=== PATIENT | female | born 1970 | race Caucasian/White ===

== ENCOUNTER 2024-04-30 08:07 | Emergency (ER) | payer MEDICAID ==
[~2024-04-30] VITALS: Ht 172.7 cm; Wt 69.5 kg
[2024-04-30 08:11] VITALS: TEMP 97.8
[2024-04-30 09:23] VITALS: BP 127/86; PULSE 84; RESP 16; O2SAT 98
== END 2024-04-30 09:24 | disposition home or self-care (01) ==
LOC: ER 08:08
DX: M25.562 Pain in left knee (principal); Z88.8 Allergy status to other drugs, medicaments and biological substances
CPT/HCPCS: 29505; 73562; 99284

== ENCOUNTER 2024-06-05 07:41 | Emergency (ER) | payer MEDICAID ==
[~2024-06-05] VITALS: Ht 172.7 cm; Wt 68.2 kg
[2024-06-05] MEDS ORDERED: AMOX-580 PO (08:32)
[2024-06-05] MEDS ORDERED: HYDR-3965 PO ×2 (08:33→08:36)
[2024-06-05 08:40] VITALS: BP 124/77; PULSE 91; RESP 16; TEMP 98.1; O2SAT 97
== END 2024-06-05 08:44 | disposition home or self-care (01) ==
LOC: ER 07:41
DX: K04.7 Periapical abscess without sinus (principal); K08.89 Other specified disorders of teeth and supporting structures; Z88.8 Allergy status to other drugs, medicaments and biological substances
CPT/HCPCS: 99283

== ENCOUNTER 2024-06-15 22:11 | Emergency (ER) | payer MEDICAID ==
[~2024-06-15] VITALS: Ht 172.7 cm; Wt 78.3 kg
[~2024-06-15 22:11] MED LIST: AMOX-580 PO
[2024-06-15 22:22] VITALS: BP 117/73; PULSE 98; RESP 18; TEMP 98.2; O2SAT 98
== END 2024-06-16 01:40 | disposition left against medical advice (07) ==
LOC: ER 22:13
DX: F41.9 Anxiety disorder, unspecified (principal); Z53.21 Procedure and treatment not carried out due to patient leaving prior to being seen by health care provider

== ENCOUNTER 2024-12-05 17:42 | Emergency (ER) | payer MEDICAID ==
[~2024-12-05] VITALS: Ht 172.7 cm; Wt 68.2 kg
[2024-12-05 18:22] VITALS: BP 133/80; PULSE 78; RESP 19; TEMP 98.4; O2SAT 98
== END 2024-12-05 18:39 | disposition home or self-care (01) ==
LOC: ER 17:42
DX: S60.455A Superficial foreign body of left ring finger, initial encounter (principal); Z88.8 Allergy status to other drugs, medicaments and biological substances; W49.04XA Ring or other jewelry causing external constriction, initial encounter; Y93.89 Activity, other specified; Y92.89 Other specified places as the place of occurrence of the external cause; Y99.8 Other external cause status
CPT/HCPCS: 99282; 99284

== ENCOUNTER 2025-01-18 14:25 | Emergency (ER) | payer MEDICAID ==
[~2025-01-18] VITALS: Ht 170.2 cm; Wt 81.7 kg
[2025-01-18 14:39] VITALS: BP 129/77; PULSE 77; RESP 18; O2SAT 98
--- NOTE | 2025-01-18 15:07 | Physician Documentation ---
History of Present Illness Chief Complaint: Abdominal Pain Stated Complaint: ABD PAIN OK to notify your PCP?: Yes HPI Tanya is a 54-year-old female presenting to emergency department today with worsening left upper quadrant pain for 3 days. The pain comes in waves and is worse after eating and with an empty stomach. She reports having nausea, vomiting 3xdaily , and 1 episode of diarrhea. She history of gallbladder removal. No history of pancreatitis. Sober from alcohol for the past 5 months and are undergoing treatment. She also has a history of hepatitis-C with an liver ultrasound scheduled on Jan 27 2025 and has plans to treat her hep C after the ultrasound. Medication Reconciliation Allergies: Coded Allergies: bupropion (Verified Allergy, Severe, throat swelling, 12/05/24) buspirone (Verified Allergy, Severe, throat swelling, 12/05/24) Physical Exam Vital Signs: Temperature: 97.7, Source: Oral, Heart Rate: 77, Respiratory Rate: 18, BP: 129/77, Pulse Oximetry: 98, Weight: 81.700 Physical Exam General: conscious, coherent, non-toxic appearing, follows commands appropriately and in no apparent distress. Skin: Warm and dry without rash. Neck: Supple. Trachea midline. No JVD. Chest: Good expansion without retractions or grunting. Equal chest rise and fall. Lungs clear to auscultation bilaterally. Heart: No cyanosis. S1 and S2 normal. No murmurs, gallops, rubs, or clicks. Abdomen: Left upper quadrant tenderness, active bowel sounds. No rebound tenderness, guarding, distention. Extremities: Full range of motion. Good strength, bilaterally. No cyanosis, clubbing or edema. Neurologic: A&Ox4. Moves all extremities. Speech is clear. Gait normal. Progress Results/Orders Results/Orders Vital Signs 01/18/25 14:39 Temp 97.7 Pulse 77 Resp 18 B/P (MAP) 129/77 Pulse Ox 98 Medical Decision Making Findings Tanya is a 54-year-old female presenting with left upper quadrant pain with episodes of nausea, vomiting 3 times a day, and 1 episode of diarrhea in the past week. She reports his pain is worse after meals and worse with an empty stomach. Her AST and ALT are both elevated, but this makes sense given her hepatitis-C and prior alcohol abuse. She has an upcoming hepatic ultrasound in 9 days. I consulted with Dr. Hall on this case regarding the elevated AST and ALT values. Her lipase was normal to rule out pancreatitis. Her UA was negative for infection. We used shared decision making with the patient who agrees to follow up with her hepatitis-C treatment and upcoming ultrasound. She was made aware of her elevated liver enzymes. To help with the vomiting, I will prescribe Zofran to use as needed up to 3 times a day. To help with her stomach pains, I will prescribe omeprazole. She follow up with her primary care provider in the next 3 days and return back here for any new or concerning symptoms. Departure Disposition: HOME / SELF CARE / HOMELESS Impression: Primary Impression: Abdominal pain Additional Impression: Acute gastritis Condition: Stable Discharge Instructions: Abdominal Pain (Nonspecific), Gastritis, Adult Additional Instructions: Please continue with your ultrasound on the and treatment plan. Follow up with her primary care provider in the next 3 days. Return back here for new or worsening symptoms. You are being prescribed Zofran for your nausea and vomiting and omeprazole to reduce acid in the stomach. As always, please take medications as directed. If you have any questions at all regarding your medications please contact the pharmacist, emergency department or your regular doctor. Thank you for choosing the [facility] Emergency Department today. We hope you feel better soon! Referrals: NO PRIMARY CARE PROVIDER (PCP) Education Educated: Patient Educated regarding: diagnosis, treatment, prognosis, need for follow up Signature Scribe Signature: . Attestation: Dayanna Green NP . 01/18/25 16:40 DAYANNA LUGO January 18, 2025 15:07
[2025-01-18 15:15] LABS: BILIRUBIN,URINE NEGATIVE (Neg); CLARITY,URINE CLEAR (Clear); COLOR,URINE YELLOW (Yellow); GLUCOSE, URINE NEGATIVE (Neg); KETONES,URINE NEGATIVE (Neg); LEUKOCYTE ESTERASE ,URINE NEGATIVE (Neg); NITRITES, URINE NEGATIVE (Neg); OCCULT BLOOD,URINE NEGATIVE (Neg); PROTEIN,URINE NEGATIVE (Neg); UROBILINOGEN,URINE 0.2 E.U/dL (0.2-1.0)
[2025-01-18 15:16] LABS: BASOPHILS # (AUTO) 0.1 X10'3 (0-0.2); BASOPHILS % (AUTO) 1.1 % (0-1); EOSINOPHILS # (AUTO) 0.2 X10'3 (0-0.9); EOSINOPHILS % (AUTO) 2.7 % (0-6); HEMATOCRIT 38.6 % (35.0-45.0); HEMOGLOBIN 13.2 g/dl (12.0-16.0); LYMPHOCYTES # (AUTO) 2.3 X10'3 (1.1-4.8); LYMPHOCYTES % (AUTO) 35.9 % (21-51); MEAN CORPUSCULAR HGB CONC 34.2 g/dL (33.0-36.5); MEAN CORPUSCULAR VOLUME 87.6 FL (78-98); MEAN PLATELET VOLUME 7.9 FL (7.4-10.4); MONOCYTES # (AUTO) 0.6 X10'3 (0-0.9); MONOCYTES % (AUTO) 9.9 % (2-12); NEUTROPHILS # (AUTO) 3.3 X10'3 (1.8-7.7); NEUTROPHILS % (AUTO) 50.4 % (42-75); PLATELET COUNT 203 X10'3 (140-440); RED BLOOD COUNT 4.41 X10'6 (4.20-5.60); RED CELL DISTRIBUTION WIDTH 13.3 % (11.5-14.5); WHITE BLOOD COUNT 6.5 X10'3 (4.5-11.0)
[2025-01-18 15:17] LABS: UA COLLECTION TYPE CLN CATCH MIDSTREAM
[2025-01-18 15:24] LABS: URINE HCG NEGATIVE (NEG)
[2025-01-18 15:47] LABS: ALANINE AMINOTRANSFERASE 289 U/L (12-78); ALBUMIN 3.5 G/DL (3.4-5.0); ALBUMIN/GLOBULIN RATIO 0.9 (1.1-1.5); ALKALINE PHOSPHATASE 82 IU/L (46-116); AMYLASE 52 U/L (25-115); ANION GAP 9 (8-16); ASPARTATE AMINO TRANSFERASE 151 U/L (10-37); BILIRUBIN,TOTAL 0.2 MG/DL (0.1-1.0); BLOOD UREA NITROGEN 24 MG/DL (7-18); BUN/CREATININE RATIO 25.8 (10.0-20.0); CALCIUM 8.5 MG/DL (8.5-10.1); CHLORIDE 107 MMOL/L (99-107); CREATININE 0.93 MG/DL (0.40-0.90); GLUCOSE 80 MG/DL (70-104); LIPASE 47 U/L (16-77); SODIUM 141 MMOL/L (135-145); TOTAL CARBON DIOXIDE 24.6 MMOL/L (24-32); TOTAL PROTEIN 7.4 G/DL (6.4-8.2); eCRCL 66 ML/MIN; eGFR 62 ML/MIN
[2025-01-18] MEDS ORDERED: ONDA-243 PO (16:38)
[2025-01-18] MEDS ORDERED: OMEP20CA15 PO (16:39)
[2025-01-18 16:45] VITALS: TEMP 97.7
== END 2025-01-18 16:47 | disposition home or self-care (01) ==
LOC: ER 14:26
DX: K29.00 Acute gastritis without bleeding (principal); Z88.8 Allergy status to other drugs, medicaments and biological substances; Z90.49 Acquired absence of other specified parts of digestive tract
CPT/HCPCS: 36415; 80053; 81003; 81025; 82150; 83690; 85025; 99283

== ENCOUNTER 2025-01-27 10:46 | Emergency (ER) | payer MEDICAID ==
[~2025-01-27] VITALS: Ht 172.7 cm; Wt 81.6 kg
[~2025-01-27 10:46] MED LIST changes: -AMOX-580 PO; +OMEP20CA15 PO; +ONDA-243 PO
[2025-01-27 10:51] VITALS: BP 136/89; PULSE 81; RESP 18; TEMP 98; O2SAT 97
--- NOTE | 2025-01-27 11:14 | Physician Documentation ---
History of Present Illness ~ Chief Complaint: Mental Health Eval Stated Complaint: MANIC STATE X2 WEEKS Time Seen by MD: 11:07 HPI This is a 54-year-old female with a known history of bipolar, currently off her meds except for Seroquel, normally sees range urea, comes in for evaluation of two weeks of decreased level of sleep, increased melva. She is requesting medications for melva. The particular palliating or aggravating factors. Similar to prior manic episodes. Denies any somatic complaints. Denies any concern for tobacco, alcohol or illicit substances use. Medication Reconciliation Allergies: Coded Allergies: bupropion (Verified Allergy, Severe, throat swelling, 01/27/25) buspirone (Verified Allergy, Severe, throat swelling, 12/05/24) Scheduled Omeprazole (Omeprazole), 1 CAP PO DAILY Scheduled PRN ONDANSETRON ODT 4mg tablet (Ondansetron Odt), 1 TAB PO Q6H PRN PRN for nausea/vomiting Review of Systems ROS 10 point review of systems was performed and unless noted above in HPI is negative for acute process/complaint. Physical Exam Vital Signs: Temperature: 98.0, Source: Temporal, Heart Rate: 81, Respiratory Rate: 18, BP: 136/89, Pulse Oximetry: 97, Weight: 81.590 Physical Exam Physical examination: GENERAL: Awake, alert, oriented, GCS 15, no apparent distress, non-toxic appearing, answers questions, follows commands appropriately. HEENT: Atraumatic, normocephalic, pupils equal, extraocular muscles intact Active gross movements, sclerae anicteric, mucus membranes moist, no stridor. NECK: Midline, no JVD CARDIOVASCULAR: Good skin perfusion without evidence of pallor, mottling. PULMONARY: Nonlabored, symmetric chest rise, no audible wheezing, no accessory muscle use, no respiratory distress, speaking in full sentences. GASTROINTESTINAL: Not distended. NEUROLOGIC: Lucid with normal mental status. Normal facial symmetry. Moves all extremities symmetrically and with purpose. No truncal ataxia. Speech is fluid without evidence of dysarthria or aphasia, no focal deficits appreciated. EXTREMITIES: Acute deformities Skin: warm, dry PSYCHIATRIC: Pressured speech and anxious affect, normal insight, normal concentration. Focused exam: [] Progress Results/Orders Results/Orders Orders - LEONIDES PONCE DO Olanzapine Disint. Tablet (Zyprexa Zydis (01/27/25 11:10) Vital Signs 01/27/25 10:51 Temp 98.0 Pulse 81 Resp 18 B/P (MAP) 136/89 Pulse Ox 97 Medical Decision Making Findings Facility Status: ED Holds, RME process The plan was discussed with the patient, who demonstrates clear understanding of the plan and is in agreement with the plan unless otherwise noted in the chart. All questions have been answered, all concerns were addressed unless otherwise documented. I was available throughout their ED stay for frequent reassessment and questions. Differential Diagnoses (considered and possible or likely): [Acute psychosis, melva, decompensation of psychiatric disease, medication noncompliance,] ??Differential Diagnoses (considered and unlikely, not requiring evaluation currently): [Unlikely to represent any acute somatic process as the patient has no somatic complaints.] MDM Data Please see [facility] for the following: Independent Historians and external Records Review. Historian: [Patient] Independent Historians: ?[Record review] Medication Management: [Reviewed medication list] Social History and determinants: [Reviewed] Please see the body of the note for the following: Any independent interpretations of ECG, imaging studies. All vitals signs/haemodynamics, ordered tests were independently reviewed and interpreted by myself. Nursing triage complaint and vitals reviewed, additional nursing notes were reviewed as available and I agree unless otherwise noted or documented in contradiction in the chart Vital Signs: Independently reviewed Labs: Independently interpreted Imaging: Independently interpreted Old Medical Records: Independently reviewed, see HPI for relevant summary and information Pulse Oximetry: [97%] interpreted as [normal on room air] by me Additionally notably showing: [Hemodynamically stable] Tests considered but not ordered include: [Hematologic workup and imaging has been considered but does not appear to be necessary given clinical nature of diagnosis] Social Determinants of Health Impact: Patient was evaluated in [facility] [place] access to [facility] due to below par ratio of patient to medical providers. [] Comorbid Conditions Impacting Present Evaluation and Care/Treatment: [Bipolar] Management Discussions with other Healthcare Providers: [Non] Treatment and Disposition Medication Management (Given or considered): Zyprexa Zydis. See EMR for details Consideration for Hospitalization/Escalation/Deescalation of Care: Admission for observation has been considered, [however the patient is able to tolerate p.o., their symptoms are controlled, they are able to rely on oral medications, and their chief complaint/diagnosis can be managed on outpatient basis.] ?ED Course:?[No clinical decompensation, no somatic complaints, not suicidal and not homicidal.] ?Shared decision making:?[Patient is hemodynamically stable for discharge home with follow with their primary care provider. [ ] Specific and cautious return precautions provided and discussed with full understanding. Any incidental findings were also discussed and follow up recommendations given. [] All questions answered. Patient/family were able to verbalize back return precautions. Patient/family agree to plan. Copies of imaging and laboratory studies were provided.] Code status:?FULL Please see the full Electronic Medical Record for full details of nursing documentation, medications list, other records of complete past medical history and conditions, vital signs, laboratory studies, and any radiologic study interpretations by radiologists. Portions of this note were completed using [employer] dictation software and as a result there may exist minor errors in spelling. I have reviewed elements of past family and social history and agree as included in note. Departure Disposition: 01 HOME / SELF CARE / HOMELESS Impression: Primary Impression: Melva Condition: Improved Discharge Instructions: Managing Bipolar Disorder Referrals: NO PRIMARY CARE PROVIDER (PCP) Education Educated: Patient Educated regarding: diagnosis, treatment, prognosis, need for follow up Signature Scribe Signature: No scribe Attestation: This note accurately reflects clinical decisions, work performed by myself, DO KRIS Kilpatrick NICHOLAS M DO January 27, 2025 11:14
[2025-01-27] MEDS: OLANZapine 5mg rapidly disint. tablet PO ONE (11:35)
== END 2025-01-27 11:41 | disposition home or self-care (01) ==
LOC: ER 10:46
DX: F30.9 Manic episode, unspecified (principal); Z88.8 Allergy status to other drugs, medicaments and biological substances; Z79.899 Other long term (current) drug therapy
CPT/HCPCS: 99283

== ENCOUNTER 2025-01-29 04:13 | Emergency (ER) | payer MEDICAID ==
[~2025-01-29] VITALS: Ht 160 cm; Wt 83.0 kg
[2025-01-29 04:16] VITALS: BP 142/83; PULSE 96; RESP 16; TEMP 98.1; O2SAT 95
--- NOTE | 2025-01-29 04:42 | Physician Documentation ---
History of Present Illness ~ Chief Complaint: Eye Pain Stated Complaint: EYE PAIN Time Seen by MD: 04:42 Primary Medical Doctor: none - pt in residential treatment HPI Patient presents to the emergency room with mild rash over patient's left eye which is itching and she is concerned she has poison oak over her eye. Denies pain. She is exposed to dogs and family members who also have poison oak. No vision changes Medication Reconciliation Allergies: Coded Allergies: bupropion (Verified Allergy, Severe, throat swelling, 01/27/25) buspirone (Verified Allergy, Severe, throat swelling, 12/05/24) Scheduled Omeprazole (Omeprazole), 1 CAP PO DAILY Scheduled PRN ONDANSETRON ODT 4mg tablet (Ondansetron Odt), 1 TAB PO Q6H PRN PRN for nausea/vomiting Review of Systems ROS All review of systems negative except as per HPI Physical Exam Vital Signs: Temperature: 98.1, Source: Oral, Heart Rate: 96, Respiratory Rate: 16, BP: 142/83, Pulse Oximetry: 95, Weight: 83.000 Oxygen Flow Rate: 0 Physical Exam General: Patient is awake, alert, oriented x4 in no acute distress and well appearing.~ Head: Normocephalic and atraumatic. Eyes: Conjunctival normal. EOMI. PERRL. Mild erythema medial part of left eyelids ENT: Mucous membranes moist. Neck: Supple, trachea is midline. Chest: Clear to auscultation bilaterally without rales, rhonchi, or wheezes. There is no accessory muscle use or retractions. Cardiac: RRR without murmurs, gallops, or rubs. Progress Results/Orders Results/Orders Vital Signs 01/29/25 04:16 Temp 98.1 Pulse 96 Resp 16 B/P (MAP) 142/83 Pulse Ox 95 O2 Flow Rate 0 Medical Decision Making Findings Patient presents to the emergency room with possible poison oak over the her left eyelids as per HPI. Differentials include but are not limited to vanco I poison oak topical dermatitis shingles. No conjunctival involvement. No pain with eye movement. Given HPI we will treat for poison oak. Unfortunately topical steroids are contraindicated on eyelids. We will prescribe Benadryl. Departure Disposition: HOME / SELF CARE / HOMELESS Impression: Primary Impression: Poison oak Condition: Stable Discharge Instructions: Poison Goodell Dermatitis, [id number] Referrals: NO PRIMARY CARE PROVIDER (PCP) Prescriptions Diphenhydramine Hcl (Benadryl) 25 Mg Capsule 1-2 CAP PO Q6H for Itching, #30 CAP 0 Refills Prov: DAKOTA DUVAL MD 01/29/25 Signature Scribe Signature: No scribe Attestation: The note accurately reflects work and decisions made by me.Dakota Duval MD 01/29/25 04:57 DAKOTA DUVAL MD January 29, 2025 04:42
[2025-01-29] MEDS ORDERED: DIPH25CA83 PO (04:56)
== END 2025-01-29 05:09 | disposition home or self-care (01) ==
LOC: ER 04:14
DX: L23.7 Allergic contact dermatitis due to plants, except food (principal); Z88.8 Allergy status to other drugs, medicaments and biological substances; Z79.899 Other long term (current) drug therapy
CPT/HCPCS: 99282; 99283; A6410

== ENCOUNTER 2025-02-01 03:28 | Emergency (ER) | payer MEDICAID ==
[~2025-02-01] VITALS: Ht 170.2 cm; Wt 180.0 kg
[~2025-02-01 03:28] MED LIST changes: +DIPH25CA83 PO
--- NOTE | 2025-02-01 04:10 | Physician Documentation ---
HPI ~ General Chief Complaint: Medication Request Stated Complaint: MANIC EPISODE Time Seen by MD: 04:08 Primary Medical Doctor: none - pt in residential treatment Source: patient History of Present Illness HPI Comments 54-year-old female, history of bipolar disorder, who presents with difficulty sleeping and racing thoughts. She tells me that she recently moved to the area, and is still establishing care and adjusting her medications. She is currently on Seroquel and a new antidepressant. She tells me that she has not been able to sleep time, has racing intrusive thoughts. She is hyperactive. She is requesting something to help her sleep. She denies any other acute medical concerns. She tells me she has follow up tomorrow. Medication Reconciliation Allergies: Coded Allergies: bupropion (Verified Allergy, Severe, throat swelling, 02/01/25) buspirone (Verified Allergy, Severe, throat swelling, 02/01/25) Scheduled Diphenhydramine Hcl (Benadryl), 1-2 CAP PO Q6H Omeprazole (Omeprazole), 1 CAP PO DAILY Scheduled PRN ONDANSETRON ODT 4mg tablet (Ondansetron Odt), 1 TAB PO Q6H PRN PRN for nausea/vomiting Review of Systems Constitutional: Denies: fever Gastrointestinal: Denies: abdominal pain Psychiatric: Reports: sleeplessness Physical Exam Physical Exam Vital Signs: Temperature: 98.6, Source: Oral, Heart Rate: 84, Respiratory Rate: 16, BP: 119/75, Pulse Oximetry: 97, Weight: 180.000 Physical Exam General: This is a middle-aged female who is actively pacing around the waiting room when I went to see her in triage HEENT: Atraumatic, oropharynx is moist Heart: Regular rate, normal-appearing peripheral perfusion Lungs: normal work of breathing, normal oxygen saturation on room air Extremities: Warm and well-perfused Neuro: Alert and oriented Psychiatric: The patient appears hyperactive, has pacing around the room, appears to be responding to internal stimuli, but is cooperative Progress Results/Orders Results/Orders Orders - NORMAN DUKE MD Olanzapine Disint. Tablet (Zyprexa Zydis (02/01/25 04:10) Vital Signs 02/01/25 03:32 Temp 98.6 Pulse 84 Resp 16 B/P (MAP) 119/75 Pulse Ox 97 Medical Decision Making Additional info obtained from: old records Findings Per chart review, the patient has been seen here recently in the emergency department with a similar presentation. She was given Zyprexa. Differential Dx:Considerations: Include: Psychosocial, Medical services [facility]., Medication refill, Medication non-compliance Additional Comment Psychiatric illness Assessment 54-year-old female history of bipolar presenting with difficulty sleeping and symptoms consistent with alma. She is not have any other symptoms or findings to suggest an acute medical or surgical emergency. Her only request is for medication to help her sleep. Per chart review she has done well with Zyprexa in the past. She was given a dose of Zyprexa and discharged with a plan for outpatient follow up tomorrow Departure Time of Disposition: 04:09 Disposition: 01 HOME / SELF CARE / HOMELESS Impression: Primary Impression: Bipolar disorder Additional Impression: Difficulty sleeping Condition: Stable Discharge Instructions: Medicine Refill at the Emergency Department Referrals: NO PRIMARY CARE PROVIDER (PCP) Education Educated: Patient Educated regarding: diagnosis, need for follow up Signature Scribe Signature: niru Attestation: NORMAN Ayala MD February 01, 2025 04:10
[2025-02-01] MEDS: OLANZapine 5mg rapidly disint. tablet PO ONE (04:19)
[2025-02-01 04:20] VITALS: BP 119/75; PULSE 80; RESP 16; TEMP 98.6; O2SAT 98
== END 2025-02-01 04:22 | disposition home or self-care (01) ==
LOC: ER 03:29
DX: F31.9 Bipolar disorder, unspecified (principal); G47.9 Sleep disorder, unspecified; Z88.8 Allergy status to other drugs, medicaments and biological substances; Z79.899 Other long term (current) drug therapy
CPT/HCPCS: 99283

== ENCOUNTER 2025-02-02 04:09 | Emergency (ER) | payer MEDICAID ==
[~2025-02-02] VITALS: Ht 170.2 cm; Wt 81.8 kg
[2025-02-02 04:26] VITALS: BP 133/77; PULSE 91; RESP 16; TEMP 98; O2SAT 98
== END 2025-02-02 06:03 | disposition left against medical advice (07) ==
LOC: ER 04:10
DX: F41.9 Anxiety disorder, unspecified (principal); Z53.21 Procedure and treatment not carried out due to patient leaving prior to being seen by health care provider; Z88.8 Allergy status to other drugs, medicaments and biological substances

== ENCOUNTER 2025-02-06 19:05 | Emergency (ER) | payer MEDICAID ==
[~2025-02-06] VITALS: Ht 170.2 cm; Wt 81.3 kg
[2025-02-06 19:10] VITALS: BP 138/73; PULSE 94; RESP 16; TEMP 98.8; O2SAT 96
== END 2025-02-06 20:43 | disposition left against medical advice (07) ==
LOC: ER 19:05
DX: E86.0 Dehydration (principal); Z53.21 Procedure and treatment not carried out due to patient leaving prior to being seen by health care provider; Z88.8 Allergy status to other drugs, medicaments and biological substances